=== PATIENT | female | born 1990 | race Caucasian/White ===

== ENCOUNTER 2022-02-11 00:04 | Inpatient (IN) | payer OTHER ==
[2022-02-11 01:01] LABS: BILIRUBIN NEGATIVE (NEGATIVE); BLOOD NEGATIVE Ery/uL (NEGATIVE); CLARITY CLEAR (CLEAR); COLOR YELLOW (YELLOW); GLUCOSE (U) NORMAL (NORMAL); LEUKOCYTES NEGATIVE Leu/uL (NEGATIVE); NITRITE NEGATIVE (NEGATIVE); PROTEIN NEGATIVE (NEGATIVE); UROBILINOGEN 0.2 mg/dL (0.2-1.0); pH 6.5 (5.0-9.0)
[2022-02-11 01:02] LABS: HCT 33.5 % (37.0-47.0); HGB 11.4 g/dl (12.5-16.0); MCH 31.3 pg (25.0-31.0); MPV 13.1 fL (6.0-9.5); RBC 3.64 M/uL (4.20-5.40); RDW 13.2 % (11.5-14.0); WBC 12.3 K/uL (4.0-10.5)
[2022-02-11] MEDS ORDERED: MOTRIN600 MG PO (21:53)
[2022-02-11] MEDS ORDERED: COLACE100 MG PO (21:53)
[2022-02-11] MEDS ORDERED: PRENATAL FORMU1 EACH PO (21:53)
[2022-02-11] MEDS ORDERED: FEOSOL325 MG PO (21:53)
[2022-02-11 22:02] LABS: HCT 32.9 % (37.0-47.0); HGB 10.8 g/dl (12.5-16.0); MCH 30.8 pg (25.0-31.0); MCHC 32.8 g/dL (32.0-36.0); MCV 93.7 fL (78.0-100.0); RBC 3.51 M/uL (4.20-5.40); RDW 13.6 % (11.5-14.0); WBC 16.1 K/uL (4.0-10.5)
== END 2022-02-12 03:15 | disposition home or self-care (01) | DRG 806 ==
LOC: FOB 00:04
PROVIDERS: ADMIT Obstetrics & Gynecology
PROC: 10E0XZZ Delivery of Products of Conception, External Approach (ICD-10-PCS; principal; 2022-02-11)
PROC: 0KQM0ZZ Repair Perineum Muscle, Open Approach (ICD-10-PCS; 2022-02-11)
PROC: 3E0P7VZ Introduction of Hormone into Female Reproductive, Via Natural or Artificial Opening (ICD-10-PCS; 2022-02-11)
DX: O99.02 Anemia complicating childbirth (principal); O99.12 Other diseases of the blood and blood-forming organs and certain disorders involving the immune mechanism complicating childbirth; Z37.0 Single live birth; D69.6 Thrombocytopenia, unspecified; Z3A.39 39 weeks gestation of pregnancy; O70.1 Second degree perineal laceration during delivery; O99.344 Other mental disorders complicating childbirth; F32.A Depression, unspecified; O99.214 Obesity complicating childbirth; O99.334 Smoking (tobacco) complicating childbirth; F17.210 Nicotine dependence, cigarettes, uncomplicated; Z86.16 Personal history of COVID-19
CPT/HCPCS: 36415; 81003; 86850; 86900; 86901; J0595; J2001; J2405; J7120